=== PATIENT | female | born 1975 | race Caucasian/White ===

== ENCOUNTER → 2017-03-18 | Outpatient (CLI) | payer BC ==
[~2017-03-18] MED LIST: IBUP-1459 PO; LEVO50TA6 PO; PRENTAB26 PO; SYN25 PO
[2017-03-18 17:29] LABS: HEMATOCRIT 38.1 % (37-47); MEAN CELL VOLUME 84.3 fL (80-100); MEAN CORPUSCULAR HEMOGLOBIN 27.7 pg (25-34); MEAN CORPUSCULAR HGB CONC 32.8 g/dl (32-36); MEAN PLATELET VOLUME 10.3 fL (7.4-10.4); PLATELET COUNT 221 K/uL (130-400); RED BLOOD COUNT 4.52 M/uL (4.2-5.4); WHITE BLOOD COUNT 6.54 K/uL (4.8-10.8)
[2017-03-18 17:32] LABS: POTASSIUM 3.9 mmol/L (3.5-5.1)
[2017-03-18 17:54] LABS: INR 0.9 (0.9-1.1); PROTHROMBIN TIME (PATIENT) 9.7 SECONDS (9.0-12.0)
== END | disposition home or self-care (01) ==
LOC: C.LABBFT 13:46
PROVIDERS: ATTEND Physician Assistant
DX: Z01.810 Encounter for preprocedural cardiovascular examination (principal); Z01.812 Encounter for preprocedural laboratory examination

== ENCOUNTER → 2017-03-27 | Day surgery (SDC) | payer BC ==
[2017-03-18 12:30] VITALS: Ht 167.6 cm; Wt 68.2 kg
[~2017-03-27] VITALS: Ht 167.6 cm; Wt 68.2 kg
[~2017-03-27] MED LIST changes: +ACETAMINOPHEN 325 MG TAB PO PRN; +ARTIFICIAL TEARS OP OINT 3.5 GM TUBE ONE; +ATROPINE SULFATE 0.1 MG/ML 5ML SYR IV PRN; +CLINDAMYCIN 600 MG/54 ML D5W IV SCH; +CLINDAMYCIN 600MG IV SCH; +ERYTHROMYCIN OP OINT 5 MG/GM 3.5 GM TUBE ONE; +EpHEDrine SULFATE INJ 50 MG/ML AMP IV PRN; +FENTANYL CITRATE INJ 50 MCG/1 ML 2 ML VIAL ONE; +GENTIAN VIOLET TOP SOLN DROP CHARGE ONE; -IBUP-1459 PO; +LACTATED RINGER'S 1000ML IV SCH; +LIDOCAINE HCL 2% 2 ML VIAL (20MG/ML) ONE; +LIDOCAINE/EPINEPHRINE 1% INJ 50 ML VIAL ONE; +METOCLOPRAMIDE HCL INJ 5 MG/ML 2 ML VIAL IV PRN; +MIDAZOLAM HCL 1 MG/ML 2ML VIAL ONE; +ONDANSETRON INJ 2 MG/ML 2 ML VIAL IV PRN; +ONDANSETRON INJ 2 MG/ML 2 ML VIAL ONE; +OXYCODONE/ACETAMINOPHEN 5-325 TAB PO PRN; +POVIDONE-IODINE OP SOLN 30 ML BTL ONE; -PRENTAB26 PO; +PROPOFOL IV EMULSION 10 MG/ML 20 ML VIAL IV ONE; +SCOPOLAMINE 1.5 MG TDSY TD ONE; +SODIUM CHLORIDE 0.9% 1000ML 1,000 ML IV SCH; -SYN25 PO
--- NOTE | 2017-03-27 06:46 | History & Physical Bridge - [place] ---
H&P Re-Evaluation Bridge Note: I have examined the patient, reviewed the History & Physical and in the interval since the performance of the History & Physical I have noted the following changes of clinical significance: Patient thinks she may have had a single dose of ibuprofen in the last week, she is not sure. OK to proceed.
--- NOTE | 2017-03-27 08:24 | [facility] Post Operative Brief Note ---
Immediate Operative Summary Operative Date Mar 27, 2017. Pre-Operative Diagnosis Bilateral Dermatochalasis Post-Operative Diagnosis Same Procedure(s) Performed Bilateral Upper Blepharoplasty & Right Eyebrow Lesion Excision Surgeon Dr. Garrett Airconditioning Drafting Officer Surgeon(s) Master Kyle PA-C Estimated Blood Loss 1 Findings none Specimens A.) Lesion of glabella Anesthesia general Complication(s) None Disposition Recovery Room / PACU
--- NOTE | 2017-03-27 08:24 | Discharge Instructions ---
Discharge Instructions Date of Service Mar 27, 2017. Admission Reason for Admission: Dermatochalasis Discharge Discharge Diagnosis / Problem: dermatochalasis Discharge Goals Goal(s): Decrease discomfort Activity Recommendations Activity Limitations: per Instructions/Follow-up section ACTIVITY RECOMMENDATIONS: __Normal activities _x_No bending, lifting or straining __No driving __Driving allowed when you are off pain medications _x_Walking permitted __You should have help at home for ___ days DRESSINGS: _x_No dressings required __Keep dressings dry/in place until first office visit __Remove dressings ___ and leave dressings off __Apply ice ___ days __Remove dressings and reapply garment _x_Apply antibiotic ointment that was prescribed to you to wounds 3-4 times/day until gone BATHING: __Keep dressings dry _x_Sponge bathing permitted __Showering permitted _x_No swimming, hot tubs or soaking in a tub MEDICATIONS: Resume previous medications unless instructed otherwise by your surgeon. _x_Do not use aspirin, Motrin, Advil or Ibuprofen as these may promote bleeding. Please use Tylenol. _x_Prescription(s) provided: pain medication and antibiotic ointment were prescribed to you at your last office visit OTHER INSTRUCTIONS: __Record drain output 2-3 times per day SPECIAL CARE INSTRUCTIONS: * It is normal to have a mild fever after surgery. If your temperature is higher than 101.5 degrees F, please call the office at [phone]. * Constipation is a typical side effect of pain medication. An over-the- counter stool softener will help relieve this. * Leaking around surgical drains may occur and should not cause concern. Sometimes these drains become clogged. If this happens, remove the bulb and milk the clot out of the tube, then replace the bulb. * Drainage from wounds after liposuction is normal and should be expected. Garments will become soiled. You should protect furniture and bedding. This drainage should mostly subside within 2-3 days. Leave garments in place unless instructed to remove them. * If you have unusual drainage from a wound or are concerned you have an infection or have any questions or concerns, please call the office at [phone]. FOLLOW UP VISIT: If not already scheduled, please call the office, , when you return home after surgery to schedule an appointment to be seen in _3__ days. . Current Hospital Diet Patient's current hospital diet: Discharge Diet Recommended Diet: Regular Diet Procedures Procedures Performed: Bilateral Upper Blepharoplasty & Right Eyebrow Lesion Excision Pending Studies Studies pending at discharge: no Medical Emergencies . Who to Call and When: Medical Emergencies: If at any time you feel your situation is an emergency, please call 911 immediately. . Non-Emergent Contact Non-Emergency issues call your: Primary Care Provider, Surgeon . "Provider Documentation" section prepared by Edith Kyle. . VTE Core Measure Inpt VTE Proph given/why not?: SCD's [place] Drug Monitoring Program Search Results: no issues identified
[2017-03-27] MEDS: FENTANYL CITRATE INJ 50 MCG/1 ML 2 ML VIAL IV PRN ×2 (08:39→09:17)
[2017-03-27 09:32] VITALS: TEMP 37
--- NOTE | 2017-03-27 10:15 | Anesthesia Progress Nt - [facility] ---
Anesthesia Post Op Note Date & Time Mar 27, 2017 at 10:15 Vital Signs Pain Intensity: 4 Vital Signs Past 12 Hours Date Time Temp Pulse Resp B/P (MAP) Pulse Ox O2 Delivery O2 Flow Rate FiO2 03/27/17 10:03 72 16 96/56 (69) 100 Room Air 03/27/17 09:32 37.0 74 16 104/68 (80) 100 Room Air 03/27/17 09:24 71 13 03/27/17 09:24 72 13 96 03/27/17 09:23 36.9 65 12 116/67 96 Room Air 03/27/17 09:21 105/63 03/27/17 09:19 78 19 03/27/17 09:19 81 19 100 03/27/17 09:16 116/60 03/27/17 09:14 74 14 99 03/27/17 09:14 73 14 03/27/17 09:11 116/66 03/27/17 09:09 69 16 99 03/27/17 09:09 69 16 03/27/17 09:06 106/63 03/27/17 09:04 70 13 98 03/27/17 09:04 71 13 03/27/17 09:01 104/60 03/27/17 09:00 106/66 03/27/17 08:59 77 15 03/27/17 08:59 74 15 98 03/27/17 08:56 130/66 03/27/17 08:54 83 18 100 03/27/17 08:54 77 18 03/27/17 08:51 111/74 03/27/17 08:49 66 6 03/27/17 08:49 66 6 100 03/27/17 08:46 113/74 03/27/17 08:44 66 12 100 03/27/17 08:44 66 12 03/27/17 08:42 115/65 03/27/17 08:39 73 16 03/27/17 08:39 75 16 100 03/27/17 08:36 115/76 03/27/17 08:34 79 20 03/27/17 08:34 79 20 100 03/27/17 08:30 115/71 03/27/17 08:29 36.4 80 12 115/71 100 Diffusion Mask 6 03/27/17 06:29 36.9 89 20 115/71 (86) 99 Room Air Notes Mental Status: alert / awake / arousable, participated in evaluation Pt Amnestic to Procedure: Yes Nausea / Vomiting: adequately controlled Pain: adequately controlled Airway Patency, RR, SpO2: stable & adequate BP & HR: stable & adequate Hydration State: stable & adequate Anesthetic Complications: no major complications apparent
[2017-03-27 10:35] VITALS: BP 99/64; PULSE 72; O2SAT 100
--- NOTE | 2017-03-27 15:45 | OPERATIVE REPORT ---
DATE OF OPERATION: 03/27/2017 PREOPERATIVE DIAGNOSES: Bilateral upper eyelid dermatochalasis and visual field obstruction, skin lesion glabella. POSTOPERATIVE DIAGNOSIS: Same. PROCEDURES: Bilateral noncosmetic upper blepharoplasty and removal of a 5 mm skin lesion from the glabella. SURGEON: Dr. Annetta Garrett. BLIND SLAT STAPLING MACHINE OPERATOR: Edith Kyle PA-C. ANESTHESIA: General. COMPLICATIONS: None. INDICATION FOR THE PROCEDURE: The patient is a 42-year-old female who presented to my office with complaints of excess skin of her upper eyelids with visual field obstruction. She also complained of a skin lesion on the glabella she desired to have removed as well. BRIEF DESCRIPTION OF THE PROCEDURE: Risks, benefits, and alternatives of the procedure were explained to the patient who agreed and signed consent. She was identified and marked in the preoperative holding area. She was brought to the operating room where she was positioned supine and placed under general anesthesia without incident. Surgical site markings were reassessed and the surgical site was prepped and draped sterilely. A time-out procedure was performed. Corneal protectors were placed. I began with the left side. The inferior incision was marked at 9 mm above the ciliary margin at the supratarsal crease bilaterally. A small trapezoidal shaped incision was marked taking care not to cross the medial punctum medially and carrying the superior aspect into the lateral canthal area into one of the takotna's feet. Superior portion of the incision was marked and this was marked about 1 cm superior to inferior incision making sure there was greater than 1 cm beneath the eyebrow. A Oden forceps was used to pinch the skin to ensure reasonable possibility of wound closure without lagophthalmos. Similar markings were applied to the right side. Lidocaine 1% with epinephrine was used to anesthetize both upper lids. Additionally, the small skin lesion on the glabella was marked for excision and this was injected with 1% lidocaine with epinephrine as well. I began with excision of the small lesion which was performed in an elliptical fashion using a 15 blade scalpel to the underlying fat. As there was minimal tension on this wound my closure was performed using 6-0 nylon interrupted sutures. I then began with the blepharoplasty portion of the procedure. A 15 blade scalpel was used to make the incisions and the skin was removed from the underlying orbicularis muscle in a lateral to medial fashion using electrocautery taking care to provide hemostasis throughout dissection. Once hemostasis was assured, I began the wound closure. There is no appreciable medial fat herniation and therefore did not open the medial compartment. 6-0 nylon sutures were used to reapproximate the incisions being in the pupillary line and closing in a lateral to medial fashion. The procedure was completed. Bacitracin ophthalmic ointment was applied after the eyes were irrigated with BSS. Similar procedure was undertaken on the right hand side. The procedure was tolerated well. The patient was awakened and transferred to recovery in satisfactory condition. I attest to the content of the Intraoperative Record and any orders documented therein. Any exceptions are noted below. MTDD
== END | disposition home or self-care (01) ==
LOC: X.SURG 06:16
PROVIDERS: ATTEND Plastic Surgery
DX: H02.834 Dermatochalasis of left upper eyelid (principal); H02.831 Dermatochalasis of right upper eyelid; D23.39 Other benign neoplasm of skin of other parts of face; F41.9 Anxiety disorder, unspecified; Z80.3 Family history of malignant neoplasm of breast; Z82.49 Family history of ischemic heart disease and other diseases of the circulatory system; Z87.891 Personal history of nicotine dependence; E03.9 Hypothyroidism, unspecified; Z90.89 Acquired absence of other organs

== ENCOUNTER → 2017-04-01 | Outpatient (CLI) | payer BC ==
[~2017-04-01] MED LIST changes: -ACETAMINOPHEN 325 MG TAB PO PRN; -ARTIFICIAL TEARS OP OINT 3.5 GM TUBE ONE; -ATROPINE SULFATE 0.1 MG/ML 5ML SYR IV PRN; -CLINDAMYCIN 600 MG/54 ML D5W IV SCH; -CLINDAMYCIN 600MG IV SCH; -ERYTHROMYCIN OP OINT 5 MG/GM 3.5 GM TUBE ONE; -EpHEDrine SULFATE INJ 50 MG/ML AMP IV PRN; -FENTANYL CITRATE INJ 50 MCG/1 ML 2 ML VIAL ONE; -GENTIAN VIOLET TOP SOLN DROP CHARGE ONE; -LACTATED RINGER'S 1000ML IV SCH; -LIDOCAINE HCL 2% 2 ML VIAL (20MG/ML) ONE; -LIDOCAINE/EPINEPHRINE 1% INJ 50 ML VIAL ONE; -METOCLOPRAMIDE HCL INJ 5 MG/ML 2 ML VIAL IV PRN; -MIDAZOLAM HCL 1 MG/ML 2ML VIAL ONE; -ONDANSETRON INJ 2 MG/ML 2 ML VIAL IV PRN; -ONDANSETRON INJ 2 MG/ML 2 ML VIAL ONE; -OXYCODONE/ACETAMINOPHEN 5-325 TAB PO PRN; -POVIDONE-IODINE OP SOLN 30 ML BTL ONE; -PROPOFOL IV EMULSION 10 MG/ML 20 ML VIAL IV ONE; -SCOPOLAMINE 1.5 MG TDSY TD ONE; -SODIUM CHLORIDE 0.9% 1000ML 1,000 ML IV SCH
== END | disposition home or self-care (01) ==
LOC: C.PAPS 11:10
PROVIDERS: ATTEND Obstetrics & Gynecology
DX: Z01.419 Encounter for gynecological examination (general) (routine) without abnormal findings (principal); Z11.51 Encounter for screening for human papillomavirus (HPV)

== ENCOUNTER → 2017-05-06 | Outpatient (CLI) | payer BC ==
--- NOTE | 2017-05-07 07:55 | MAMMOGRAPHY REPORT ---
BILATERAL DIGITAL SCREENING MAMMOGRAM TOMOSYNTHESIS WITH CAD: 05/06/2017 CLINICAL HISTORY: Routine screening. Patient has no complaints. TECHNIQUE: Breast tomosynthesis in addition to standard 2D mammography was performed. Current study was also evaluated with a Computer Aided Detection (CAD) system. COMPARISON: Comparison is made to exams dated: 04/29/2016 mammogram, 04/20/2015 mammogram, 04/17/2015 ma mmogram, 04/12/2014 mammogram, 04/04/2014 mammogram, and 10/14/2013 mammogram - [facility] er. BREAST COMPOSITION: There are scattered areas of fibroglandular density in both breasts. FINDINGS: There is a 6 mm nodular asymmetry in the far superior right breast, only seen on the MLO v iew but is increasingly conspicuous compared to prior mammograms. Additional spot compression tomosy nthesis views and possibly ultrasound are recommended. No other suspicious mass, architectural distortion or cluster of microcalcifications is seen bilatera lly. IMPRESSION: ACR BI-RADS CATEGORY 0: INCOMPLETE EVALUATION: NEED ADDITIONAL IMAGING EVALUATION The 6 mm nodular asymmetry in the superior right breast needs additional evaluation. The patient will be called to schedule an appointment. Approximately 10% of breast cancers are not detected with mammography. A negative mammographic report should not delay biopsy if a clinically suggestive mass is present. Sylvia Wharton M.D. ay/:05/06/2017 16:27:58 [employer]er [employer]: Luzmaria BEE([facility]), [facility] letter sent: Addl Imaging 0 BI-RADS Code: ACR BI-RADS Category 0: Incomplete Evaluation: Need Additional Imaging Evaluation
== END | disposition home or self-care (01) ==
LOC: C.MAMM 12:30
PROVIDERS: ATTEND Obstetrics & Gynecology
DX: Z12.31 Encounter for screening mammogram for malignant neoplasm of breast (principal); R92.8 Other abnormal and inconclusive findings on diagnostic imaging of breast

== ENCOUNTER → 2017-05-14 | Outpatient (CLI) | payer BC ==
--- NOTE | 2017-05-14 12:48 | MAMMOGRAPHY REPORT ---
UNILATERAL RIGHT DIGITAL DIAGNOSTIC MAMMOGRAM TOMOSYNTHESIS AND TARGETED RIGHT ULTRASOUND: 05/14/2017 CLINICAL HISTORY: Callback from screening mammogram for right breast asymmetry. TECHNIQUE: Breast tomosynthesis in addition to standard 2D mammography was performed. Spot compress ion right CC and MLO 2-D and tomosynthesis images were obtained. COMPARISON: Comparison is made to exams dated: 05/06/2017 mammogram, 04/29/2016 mammogram, 04/20/2015 u ltrasound, 04/20/2015 mammogram, 04/17/2015 mammogram, and 04/12/2014 ultrasound - [facility] enter. BREAST COMPOSITION: There are scattered areas of fibroglandular density in the right breast. FINDINGS: The nodular asymmetry seen within the right superior breast on the MLO view effaces to a b aseline appearance on the additional spot compression images, with asymmetry stable in appearance to the 2014 exam on the additional views. No suspicious masses or areas of architectural distortion are noted on the additional images. Targeted ultrasound was performed of the right superior breast in the region of the mammographic asym metry. No suspicious masses or other suspicious sonographic abnormalities are evident. IMPRESSION: ACR BI-RADS CATEGORY 2: BENIGN, TARGETED ULTRASOUND ACR BI-RADS CATEGORY 2: BENIGN The right superior breast asymmetry effaces to a baseline appearance on the additional views, without corresponding suspicious sonographic abnormality evident. Findings are benign given the stability c ompared to the 2014 exam and likely represents normal fibroglandular tissue. There is no mammographi c or targeted sonographic evidence of malignancy. A 1 year screening mammogram is recommended. The patient has been verbally notified of the results. Approximately 10% of breast cancers are not detected with mammography. A negative mammographic report should not delay biopsy if a clinically suggestive mass is present. Joan Cline M.D. /:05/14/2017 10:54:52 Guide Tour: Yelena Palencia, [facility] letter sent: Normal 1/2 BI-RADS Code: ACR BI-RADS Category 2: Benign Ultrasound BI-RADS: ACR BI-RADS Category 2: Benign
== END | disposition home or self-care (01) ==
LOC: C.MAMM 09:56
PROVIDERS: ATTEND Obstetrics & Gynecology
DX: N64.89 Other specified disorders of breast (principal)

== ENCOUNTER → 2017-09-02 | Outpatient (CLI) | payer BC | END | disposition home or self-care (01) | LOC: C.LABBFT 13:32 | PROVIDERS: ATTEND Physician Assistant Medical | DX: R19.7 Diarrhea, unspecified (principal) ==

== ENCOUNTER → 2018-05-10 | Outpatient (CLI) | payer BC ==
--- NOTE | 2018-05-11 15:24 | MAMMOGRAPHY REPORT ---
BILATERAL DIGITAL SCREENING MAMMOGRAM TOMOSYNTHESIS WITH CAD: 05/10/2018 CLINICAL HISTORY: Routine screening. TECHNIQUE: The study was acquired using full field digital technology and interpreted from soft copy. Breast tomosynthesis in addition to standard 2D mammography was performed. Current study was also ev aluated with a Computer Aided Detection (CAD) system. COMPARISON: Comparison is made to exams dated: 05/14/2017 mammogram, 05/06/2017 mammogram, 04/29/2016 ma mmogram, 04/20/2015 mammogram, 04/17/2015 mammogram, and 04/04/2014 mammogram - [facility]. BREAST COMPOSITION: There are scattered areas of fibroglandular density in both breasts. FINDINGS: The parenchymal pattern is unchanged. No developing mass, architectural distortion or cluster of susp icious microcalcifications is seen in either breast. IMPRESSION: ACR BI-RADS CATEGORY 2: BENIGN There is no mammographic evidence of malignancy. A 1 year screening mammogram is recommended.( 019) The patient will receive written notification of the results. Some breast cancers are not detected with mammography. A negative mammographic report should not preeti y biopsy if a clinically suggestive mass is present. Sylvia Wharton M.D. ay/:05/10/2018 20:50:46 Young Adult Librarian: RT Kong([place])(M), [facility] letter sent: Normal 1/2 BI-RADS Code: ACR BI-RADS Category 2: Benign
== END | disposition home or self-care (01) ==
LOC: C.MAMM 10:51
PROVIDERS: ATTEND Obstetrics & Gynecology
DX: Z01.419 Encounter for gynecological examination (general) (routine) without abnormal findings (principal)

== ENCOUNTER → 2018-05-13 | Outpatient (CLI) | payer BC | END | disposition home or self-care (01) | LOC: C.PAPS 13:48 | PROVIDERS: ATTEND Obstetrics & Gynecology | DX: Z01.419 Encounter for gynecological examination (general) (routine) without abnormal findings (principal); R87.610 Atypical squamous cells of undetermined significance on cytologic smear of cervix (ASC-US) ==